=== PATIENT | female | born 1955 | race African-American/Black ===

== ENCOUNTER 2024-03-17 00:32 | Emergency (ER) | payer OTHER, MEDICAID ==
[~2024-03-17] VITALS: Ht 162.6 cm; Wt 45.5 kg
[2024-03-17 00:41] VITALS: BP 167/103; RESP 20; O2SAT 98
[2024-03-17] MEDS ORDERED: ALBUTEROL SULF 2.5 MG/0.5ML(0.5%) NEB SOLN NEB ONE (00:45)
[2024-03-17 00:46] VITALS: PULSE 97
== END 2024-03-17 01:00 | disposition left against medical advice (07) ==
LOC: ER 00:32 → EDBD 00:32 → ER 01:00
DX: J44.1 Chronic obstructive pulmonary disease with (acute) exacerbation (principal); R06.02 Shortness of breath; R53.1 Weakness; I10 Essential (primary) hypertension; F17.210 Nicotine dependence, cigarettes, uncomplicated
CPT/HCPCS: 93005